=== PATIENT | female | born 1965 | race Caucasian/White ===

== ENCOUNTER 2024-08-02 12:58 | Outpatient (AMB) | payer BC, SELFPAY ==
--- NOTE | 2024-08-02 13:06 | A.SPINEOV_ITS ---
Vital Signs 08/02/24 13:27 Height 5 ft 7 in Weight 225 lb BMI 35.2 Intake Visit Reasons: LBP Intake Note: Mrs. Alfaro is here today c/o low back pain. 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 She identifies an inciting incident for her pain in mid June when she was loading a wheelchair for her [id number] into the trunk of a car. She felt a sharp pain in her low back followed by difficulty with ambulation thereafter. Since her initial injury she was attempted to utilize Tylenol, Aleve, lidocaine patches, tizanidin e, prednisone, Valium all with only modest relief of her symptoms. She has been evaluated by her primary care and by the emergency department in an effort to get to the bottom of how she is currently feeling. They were able to obtain an MRI for her. She reports that her pain is worse with walking and ambulation and better with sitting. She denies any numbness/tingling other pain. No issues wi th bowel or bladder incontinence. When describing her pain she states that it starts in her low back shoots over her right leg down the right posterior and lateral aspect of her thigh, over her lateral calf and into the bottom of her right foot. PMH: Thyroid cancer, nasal polyps, deviated septum. Social hx: The patient does not smoke, reports no substance use. Medications: Synthroid, Flonase, trazodone. Allergies: NKDA. Physical exam: The patient has 5/5 strength in her upper and lower extremities. No significant sensational deficits on exam. Reflexes are 2+ intact diffusely. She ambulates with a antalgic gait favoring the left side. (+) right-sided straight leg raise. (-) left-sided straight leg raise. (-) clonus, (-) Sotelo's. Imaging review: MRI of the lumbar spine completed at [facility] shows roughly 2-3 cm hemangioma in vertebral body of L2. In addition to this there is a posterior disc bulge at L4-5 causing mild-moderate foraminal stenosis on the left. There also appears to be a disc herniation at L5-S1 causing impingement of the far lateral recess of the left-sided exiting nerve root. Impression: Loretta is a pleasant 59-year-old female who comes in today with a chief complaint of low back pains and shooting pain down her right lower extremity. Her MRI imaging shows some evidence for impingement on her left side, however the paracentral disc herniations seen at L4-5 and L5-S1 could be causing referred pain to her right side. Nonetheless, she is less than a month out from her initial injury, and has not attempted conservative treatments for her injury as of yet. I will order her a stat order for physical therapy to get her in quickly with someone. I strongly encouraged her to follow up with her physiatry appointment at [facility] to consider cortisone injections if physical therapy alone is not helpful for her. If she completes a course of physical therapy, and is unable to treat her pain with the providers at [facility], she may return to us for subsequent evaluation. We discussed the red flag signs for cauda equina syndrome and she understands that if any of these occur she should call the office and come in and see us right away or be evaluated in the emergency department. Thank you for allowing us to care for your patient. The total time spent with this visit with this patient was 45 minutes reviewing history, physical exam, MRI imaging review, and implementation of treatment plan or further diagnostic testing Braeden Harris MD,PhD [facility] Orders: Orders PT Evaluation and Treatment Today M54.16 - Radiculopathy, lumbar region Medications: New gabapentin 300 mg PO TID 30 caps 1RF Coding Level of Care Code New Pt Level 4 (78991) Diagnoses Lumbar radiculopathy M54.16
[2024-08-02 13:27] VITALS: BMI 35.2
--- OUTSIDE RECORDS SUMMARY | 2024-08-02 15:14 | XMS_ITS | Continuity of Care Document ---
Author Organization [facility] ter Address [address] [place] [id number]- Care Team Providers Care Facility Technician Name Role Phone Ingrid Balbuena MD Primary Care Physician Encounter 07/25/24 - 07/26/[address] [address] Attending Physician: Not on Staff, Attending MD Referring Physician: Not on Staff, Referring MD Encounter Type: [facility]RI Allergies, Adverse Reactions, Alerts Substance Criticality Severity Reaction Reaction Severity Status Grass Active Medications Albuterol 2 puffs, Inhalation, PRN Wheezing/Shortness of Breath, 0 Refills, Maintenance, 11/04/12 10:35:51 AM EDT Start Date: 11/04/12 Status: Ordered Repeat number: 1 levothyroxine 0.1 mg oral tablet 1 tablet = 100 mcg, By Mouth, Daily, 0 Refills, Maintenance, 12/03/12 3:33:55 PM EDT Start Date: 12/03/12 Status: Ordered Repeat number: 1 lidocaine 4% topical film 1 patch, Topically, Daily, do not leave patch on for more than 12 hours at a time, # 10 each, 0 Refills, Acute 07/28/24 9:00:00 AM EST, 07/20/24 3:57:00 PM EST, Film, [id number], Partial fill upon patient request if the prescription is for a schedule II opioid drug., 1 patch Topically Daily,Instr:do not leave patch on for more than 12 hours at a time, 170, cm, 07/20/24 9:33:00 EST, Height, 102.5, kg, 07/20/24 9:33:00 EST, Dry Weight Start Date: 07/20/24 Stop Date: 07/28/24 Status: Ordered Quantity: 10.0 Unit: each Repeat number: 1 NuLYTELY with Flavor Packs oral powder for reconstitution See Instructions, as directed per md, # 4,000 mL, 0 Refills, Maintenance, 12/15/18 8:47:01 AM EDT, [facility], as directed per Start Date: 12/15/18 Status: Ordered Quantity: 4000.0 Unit: mL Repeat number: 1 Problem List Condition Confirmation Course Effective Dates Status Health St atus Informant Asthma Confirmed Active Depression Confirmed Active Hx of papillary thyroid carcinoma Confirmed Active Obese class II Confirmed Active Social History Social History Type Response Smoking Status Never smoker entered on: 11/06/15 Sex Sex Representation Female (finding) Patient Care team information Care Team Personnel Name: Sarah Casillas RN Position: [facility] SN RN Member Role: Primary Care Nurse Name: Ingrid Balbuena MD Position: [facility] Physician - Primary Care Member Role: PCP Address: [address] [place] [address] Telecom: Name: Khoa May CRNA Position: [facility] RN Member Role: Primary Care Nurse Care Team Related Persons Name: KELLEE SANDS Name: CECILIA MANE Name: CECILIA MANE Name: NESTOR BAUTISTA Insurance Providers Guarantor name: LILI SHAVON Health Plan Information #: 1 Payer: [employer] Member Number: NA Policy Number: NA Group Number: NA
--- OUTSIDE RECORDS SUMMARY | 2024-08-02 15:14 | XMS_ITS | Data Portability ---
Author Organization [place] - [facility], Allergy Address [address] [place] [address] Care Team Providers Care Net Development Manager Name Role Phone ARMANI CHEEMA Primary Care Provider [phone] ARMANI CHEEMA Referring Provider [phone] ARMANI CHEEMA Primary Care Provider Assessment Encounter Date Assessment Date Assessment LastModified by Organization Details LastModified Time 04/13/2024 04/13/2024 59-year-old female who is several months out from endoscopic sinus surgery with symptomatic improvement and improvement in smell presents today for reassessment. She is on IT for allergies. Exam shows some polypoid edema but no kyrie polyps or any infection. The sinus cavities are patent. Recommend follow-up 6 months or sooner if needed. [email or web address] Not available 04/20/2024 16:37:57 Plan of Treatment Reminders Order Date Submit Date Provider Last Modified By Organization Details Last Modified Time Details Appointments Establish ed 15 2024 09:45A M RABIA MARTINEZ MD Not available Not available Not available Lab None recorded. Referral None recorded. Procedures None recorded. Surgeries None recorded. Imaging None recorded. Medication Orders Flonase Allergy Relief 50 mcg/actua tion nasal spray,destiney pension 2023 024 [id number], [address] [facility] [facility], [place], [address], 01/09/2024 08:57:27 Patient TargetsNo targets recorded. Patient InstructionsNo instructions recorded. Reason for Referral None Reported. Results Created Date Observation Date Name Description Value Unit Range Abnormal Flag Note LastModifiedBy Organization Detail LastModifiedTime 03/10/2010/22/2023 imagi ng/di agnos tic resul t No observ ation record ed. [email or web address] Not Available 05:35:24 03/10/20 24 05/30/2023 imagi ng/di agnos tic resul t No observ ation record ed. [email or web address] Not Available 05:35:42 03/10/2005/30/2023 imagi ng/di agnos tic resul t No observ ation record ed. [email or web address] Not Available 05:35:47 03/10/2005/30/2023 imagi ng/di agnos tic resul t No observ ation record ed. [email or web address] Not Available 05:35:50 03/10/2005/30/2023 imagi ng/di agnos tic resul t No observ ation record ed. [email or web address] Not Available 05:35:52 Result Notes None recorded. Problems Name Problem SNOMED Code Status Onset Date Resolution Date Notes Provider Name and Address Organization Details Recorded Time Chronic maxillary sinusitis 99667355 Active 2023 Chronic maxillary sinusitis; Note: Date Diagnosed: 07/27/2023 10:40 AM (J32.0) Not Available [facility] 4 03:13:47 Polyp of nasal cavity 001723955 Active 2022 Polyp of nasal cavity; Note: Date Diagnosed: 03/27/2023 9:37 AM (J33.0) Not Available [facility] 4 03:13:46 Chronic ethmoidal sinusitis 52572750 Active 2023 Chronic ethmoidal sinusitis; Note: Date Diagnosed: 07/27/2023 10:40 AM (J32.2) Not Available [facility] 4 03:13:47 Hypertrop hy of nasal turbinate s 47907736 Active 2023 Hypertroph y of nasal turbinates ; Note: Date Diagnosed: 07/27/2023 10:40 AM (J34.3) Not Available [facility] 4 03:13:48 Allergic rhinitis 75638274 Active 2022 Other allergic rhinitis; Note: Date Diagnosed: 03/27/2023 9:37 AM (J30.89) Not Available [facility] 4 03:13:48 Nasal congestio n 22182005 Active 2022 Nasal congestion ; Note: Date Diagnosed: 03/27/2023 9:37 AM (R09.81) Not Available [facility] 4 03:13:47 Chronic pansinusi tis 86663237 Active 2023 KELLEE HERNANDEZ MD [address] [place] [address],[place] [address], [place], [address] , [place] - [facility] 4 08:46:42 Deviated nasal septum 570041076 Active 2023 Deviated nasal septum; Note: Date Diagnosed: 10/20/2023 10:31 AM (J34.2) Not Available [facility] 4 03:13:47 Follow-up visit Active 2023 Encounter for follow-up examinatio n after completed treatment for conditions other than malignant neoplasm; Note: Date Diagnosed: 10/23/2023 3:20 PM (Z09) Not Available [facility] 4 03:13:48 Problem Notes None recorded. Procedures Surgical History Date Name Laterality Status Provider Name and Address Organization Details Recorded Time 4 JMSNasal/Sinus Endoscopy completed RABIA MARTINEZ MD [address] [place] [address],[place] [address], [place], [phone], [facility] - [facility] 04/13/2024 15:27:10 4 NasalEndoscopy _DP completed KELLEE HERNANDEZ MD [address] [place] [address],[address], [address], [facility] - [facility] 01/09/2024 08:59:33 Imaging Results Imaging Date Name Status LastModified by [facility] Details LastModified Time 10/22/2023 imaging/diag nostic result completed Information not available 03/10/2024 05:35:24 05/30/2023 imaging/diag nostic result completed Information not available 03/10/2024 05:35:42 05/30/2023 imaging/diag nostic result completed Information not available 03/10/2024 05:35:47 05/30/2023 imaging/diag nostic result completed Information not available 03/10/2024 05:35:50 05/30/2023 imaging/diag nostic result completed Information not available 03/10/2024 05:35:52 Procedure Notes None recorded. Medical Equipment None Reported. Allergies No known drug allergies Medications Name Sig Start Date Stop Date Status Note LastModified by Organization Details LastModified Time azelastin e 0.05 % eye drops active Medicati on ID: [id number] B rand Name: azelasti ne Send Method: E-Prescr ibed Sub s Allowed: subs OK Medic ationGen ericName : azelasti ne Not Available Not Available Not Available ofloxacin 0.3 % eye drops INSTILL 1 DROP INTO AFFECTED EYE(S) 4 TIMES A DAY 04/13 completed Not Available Not Available Not Available fluconazo le 150 mg tablet TAKE 1 TAB BY MOUTH ONCE. MAY REPEAT DOSE IN 72 HOURS IF NECESSAR Y 04/13 completed Not Available Not Available Not Available benzonata te 200 mg capsule TAKE 1 CAPSULE BY MOUTH THREE TIMES A DAY FOR 10 DAYS 04/13 completed Not Available Not Available Not Available valacyclo vir 1 gram tablet TAKE 1 TABLET BY MOUTH THREE TIMES A DAY FOR 7 DAYS 04/13 completed Not Available Not Available Not Available Synthroid 150 mcg tablet active Not Available Not Available Not Available amoxicill in 500 mg tablet Take 1 tablet by mouth three times a day 04/13 completed Medicati on ID: [id number] D uration Value: 7 Brand Name: amoxicil ruben Send Method: E-Prescr ibed Sub s Allowed: subs OK Medic ationGen ericName : amoxicil ruben Not Available Not Available Not Available erythromy mikael 5 mg/gram (0.5 %) eye ointment APPLY 1 CM RIBBON INTO THE LOWER CONJUCTI JUAN SAC INTO AFFECTED EYE 3 TIMES A DAY FOR 7 DAYS 04/13 completed Not Available Not Available Not Available trazodone 150 mg tablet active Not Available Not Available Not Available gabapenti n 300 mg capsule 2 CAPSULES IN THE MORNING, 2 CAPSULES IN THE AFTERNOO N, AND 3 CAPSULES AT BEDTIME 04/13 completed Not Available Not Available Not Available methylpre dnisolone 4 mg tablets in a dose pack TAKE 6 TABLETS ON DAY 1 DIRECTED ON PACKAGE AND DECREASE BY 1 TAB EACH DAY FOR A TOTAL OF 6 DAYS 04/13 completed Not Available Not Available Not Available albuterol sulfate HFA 90 mcg/actua tion aerosol inhaler active Medicati on ID: [id number] B rand Name: albutero l sulfate Send Method: E-Prescr ibed Sub s Allowed: subs OK Medic ationGen ericName : albutero l sulfate Not Available Not Available Not Available fluticaso ne propionat e 50 mcg/actua tion nasal spray,destiney pension SPRAY 1 SPRAY BY INTRANAS AL ROUTE EVERY DAY active Not Available Not Available No t Available amoxicill in 875 mg-potass ium clavulana te 125 mg tablet TAKE 1 TABLET BY MOUTH EVERY 12 HOURS 04/13 completed Not Available Not Available Not Available oxycodone 5 mg tablet Take 1 tablet by mouth every four hours as needed for pain 04/13 completed Medicati on ID: [id number] D uration Value: 3 Brand Name: oxycodon e Send Method: E-Prescr ibed Sub s Allowed: subs OK Medic ationGen ericName : oxycodon e Not Available Not Available Not Available Vitals Date Recorded Body height Body mass index (BMI) Body weight Provider Name and Address Organization Details Last Updated DateTime 01/09/2024 170.18 cm 34.5 kg/m2 95287.32 g Bong Rodriguez [place] - [facility] 01/09/2024 08:49:22 Date Recorded Body height Body mass index (BMI) Body weight Provider Name and Address Organization Details Last Updated DateTime 04/13/2024 170.18 cm 34.5 kg/m2 13171.32 g Galilea Velasco [place] - [facility] 04/13/2024 15:12:48 Social History None recorded. Functional Status None recorded. Mental Status None recorded. Family History Nothing Reported. Medical History No medical history recorded. Gynecological HistoryNo gynecological history recorded. Obstetrics History GPAL:G 0 P 0 0 0 0 Past Encounters Encounter ID Performer Location Encounter Start Date Encounter Closed Date Diagnosis/Indication Diagnosis SNOMED-CT Code Diagnosis ICD10 Code Diagnosis Note [id number] KELLEE HERNANDEZ MD [facility] on [address] [place] [address], [place] [address] 01/09/2024 08:28:31 01/09/2024 09:26:04 Chronic pansinusitis 75681855 J32.4 Doing well. Start flonase to prevent progressio n. Follow up with [facility] ([facility]). Will arrange f/u with Dr. Mckineny [id number] RABIA MARTINEZ MD [facility] on [address] [place] [address], [place] [address] 04/13/2024 15:06:11 04/13/2024 15:28:16 Allergic rhinitis 22691447 J30.89 Chronic pansinusitis 888 [address] J32.4 Health Concerns Section Related Observation LastModified by Organization Detai ls LastModified Time None Recorded Concern Status LastModified by Organization Details LastModified Time None Recorded Advance Directives Directive None Recorded Payers Encounter Date Sequence Insurance Name Policy Number Policy Weir Covered Member ID Weir Member ID Guarantor Name 01/09/[address] [facility] [id number] Loretta [id number] Loretta Alfaro 04/13/[address] [facility] [id number] Loretta Alfaro [id number] Loretta Alfaro Notes Date Note Type Note Provider Name and Address Organization Details Recorded Time 01/09/2024 text/html History of FESS with septoplasty with Dr. Kinsey 10/17/23. Path benign. Smell and congestion improved. No sinusitis since the last visit. Seeing an telemetry rn. KELLEE HERNANDEZ MD [address] [place] [address], [phone], [facility] - [facility] 01/09/2024 09:00:20 04/13/2024 text/html 59 yo F presents for follow up. Saw telemetry rn, insurance denied dupixent. On IT now, can smell No sinus infections. On flonase. RABIA MARTINEZ MD [address] [place] [address], [place], [address], [facility] - [facility] 04/20/2024 16:39:04 OBGyn Episode No OBEpisode recorded.
== END 2024-08-02 14:26 | disposition home or self-care (01) ==
PROVIDERS: PCP Family Medicine; Visit Provider Physician Assistant
DX: M54.16 Radiculopathy, lumbar region (principal)
CPT/HCPCS: 99204

== ENCOUNTER → 2024-08-02 12:58 | Outpatient (BNVA) | payer BC, SELFPAY | PROVIDERS: PCP Family Medicine; Visit Provider Physician Assistant ==

== ENCOUNTER 2024-12-09 10:00 | Outpatient (AMB) | payer BC, SELFPAY ==
--- NOTE | 2024-12-09 10:04 | HO.SPINEOV ---
Intake Visit Reasons: cont/low back an rt leg pain Intake Note: Ms. Alfaro is here today c/o of low back and right leg pain continuing even after Physical Therapy. Doll Wig Maker Required: No Allergies No Known Allergies Allergy (Verified 12/09/24 10:07) Assessment & Plan Assessment & Plan (1) Lumbar radiculopathy: Code(s): M54.16 - Radiculopathy, lumbar region Category: Medical Plan HPI: Loretta is a pleasant 59 year old female who is known to our office and previously evaluated for low back pain shooting into her right lower extremity. To recap she was sent for a course of physical therapy, which he states was actually fairly helpful for her. They were able to use a TENS unit on her, do some gentle range of motion, and do some fairly extensive stretching. Unfortunately after about a month or so if physical therapy, she stopped obtaining relief from this. She did follow up with our colleagues at [facility], who completed a right-sided L5-S1 transforaminal epidural steroid injection, a L5-S1 interlaminar injection, and a piriformis muscle injection. Unfortunately she has not had any significant symptom relief from attempted injection therapies. She reports that today her pain continued to shoot down the posterior aspect of her left lower extremity. She describes the pain as severe. She states she cannot sleep at night and wakes up crying in pain. She is also on Oxycodone to help mitigate the pain, prescribed by her PCP. Imaging: MRI imaging available at [facility] from 07/25/24 shows posterior disc bulge L5-S1, which is paracentric in nature but does cause moderate right sided and severe left sided foraminal stenosis. This disc herniation also causes some effacement of the ventral surface of the thecal sac. Exam: The patient is in obvious agony on exam. She is tearful and expressing a need to find a solution for her current problem. She has full strength in her upper and lower extremities despite pain to full strength testing. She walks with a slightly antalgic gait favoring the right side. (+) bilateral straight leg raise, much worse and more pronounced on the right. No significant sensational deficits on exam. Plan: I discussed the possibility of obtaining a new MRI for the patient as her symptoms seem to have worsened quite a bit over the last 4 months, but she would like to forgo a new MRI and be scheduled for surgery to fix the problem if we are able to do so. I will review her imaging with Dr. Harris and see if he believes she is a good surgical candidate for L5-S1 microdiscectomy. The main rate limiting factor here is the orientation of the disc herniation on imaging (causing much worse compression on the left vs. right). Braeden Harris MD,PhD [facility] Coding Level of Care Code Est Pt Level 3 (34391) Diagnoses Lumbar radiculopathy M54.16
--- OUTSIDE RECORDS SUMMARY | 2024-12-09 10:22 | XMS_ITS | Data Portability ---
Author Organization [place] - [facility], Allergy Address [address] [address] Care Team Providers Care Clock Repair Technician Name Role Phone ARMANI CHEEMA Primary Care Provider [phone] Assessment Encounter Date Assessment Date Assessment LastModified [...] if needed. [email or web address] Not available 04/20/2024 16:37:57 10/12/2024 10/12/2024 59-year-old female presents today for routine allergy and sinus follow-up. No concerns for infections since her last visit. Sense of smell remains improved. Exam shows patent surgical cavities, mild polypoid edema, no mucopurulence. I did visualize her larynx given hoarseness, but there was no lesion noted. I recommended hydration, vocal hygiene. She has been doing well. She may follow-up as needed. [email or web address] Not available 10/13/2024 09:32:51 Plan of Treatment Reminders Order Date Submit Date Provider Last Modified By Organization Details Last Modified Time Details Appointments None recorded. Lab None recorded. Referral None recorded. Procedures None recorded. Surgeries None recorded. Imaging None recorded. Medication Orders Flonase Allergy Relief 50 mcg/actua tion nasal spray,destiney pension 024 024 [facility] #[id number], [address] [facility], [place], [address], 08:57:27 Patient TargetsNo targets recorded. Patient InstructionsNo instructions recorded. Reason for Referral None Reported. Results Created Date Observation Date Name Description Value Unit Range Abnormal Flag Note LastModifiedBy Organization Detail LastModifiedTime 03/10/2010/22/2023 imagi ng/di agnos tic resul t No observ ation record ed. [email or web address] Not Available 05:35:24 03/10/2005/30/2023 imagi ng/di agnos tic resul t [...] Organization Details Recorded Time Chronic maxillary sinusitis 89836535 Active 2023 Chronic maxillary sinusitis ; Note: Date Diagnosed : 07/27/2023 10:40 AM (J32.0) Not Available [facility] 4 03:13:47 Polyp of nasal cavity 045100077 Active 2022 Polyp of nasal cavity; Note: Date Diagnosed : 03/27/2023 9:37 AM (J33.0) Not Available [facility] 4 03:13:46 Chronic ethmoidal sinusitis 44309468 Active 2023 Chronic ethmoidal sinusitis ; Note: Date Diagnosed : 07/27/2023 10:40 AM (J32.2) Not Available [facility] 4 03:13:47 Hypertrop hy of nasal turbinate s 33483491 Active 2023 Hypertrop hy of nasal turbinate s; Note: Date Diagnosed : 07/27/2023 10:40 AM (J34.3) Not Available [facility] 4 03:13:48 Allergic rhinitis 98364429 Active 2022 Other allergic rhinitis; Note: Date Diagnosed : 03/27/2023 9:37 AM (J30.89) Not Available [facility] 4 03:13:48 Nasal congestio n 58698039 Active 2022 Nasal congestio n; Note: Date Diagnosed : 03/27/2023 9:37 AM (R09.81) Not Available [facility] 4 03:13:47 Chronic pansinusi tis 08491048 Active 2023 KELLEE HERNANDEZ MD [address] [facility] [address],[place] [address], [place], [address] , [place] - [facility] 4 08:46:42 Deviated nasal septum 716761635 Active 2023 Deviated nasal septum; Note: Date Diagnosed : 10/20/2023 10:31 AM (J34.2) Not Available [facility] 4 03:13:47 Follow-up visit Active 2023 Encounter for follow-up examinati on after completed treatment for condition s other than malignant neoplasm; Note: Date Diagnosed : 10/23/2023 3:20 PM (Z09) Not Available [facility] 4 03:13:48 Chronic hoarsenes s 37796013613 05 Active 2024 RABIA MARTINEZ MD [address] [facility] [address], [place], [address] , [place] [facility] 5 09:31:35 Problem Notes None recorded. Procedures Surgical History Date Name Laterality Status Provider Name and Address Organization Details Recorded Time 10/13/19 25 Fiberoptic Laryngoscopy (Comprehensive) completed RABIA MARTINEZ MD [address] [facility] [address], [place], [address], [place] - [facility] 10/13/2024 09:31:29 04/13/20 JMSNasal/Sinus Endoscopy completed RABIA MARTINEZ MD [address], [address], [facility] 04/13/2024 15:27:10 01/09/20 NasalEndoscopy_D P completed KELLEE HERNANDEZ MD [address], [address], [facility] 01/09/2024 08:59:33 Imaging Results Imaging Date Name Status [facility]Modified by [facility] Details LastModified Time 10/22/2023 imaging/diag nostic result [...] % eye drops active Medicati on ID: [id number] B rand Name: christofer solano Send Method: E-Prescr ibed Sub s Allowed: subs OK [facility] eitanmadihastlise solano Not Available Not Available Not Available prednison e 10 mg tablet TAKE 5 TABS ON DAY 1 AND DAY 2 4 TABS ON DAY 3, 3 TABS ON DAY 4 2 TABS ON DAY 5, 1 TAB ON DAY 6 10/12 completed Not Available Not Available Not Available tizanidin e 2 mg tablet TAKE 1 TABLET EVERY 6-8 HOURS FOR 5 DAYS, FOR LOW BACK PAIN. MAY TAKE 2 TABLETS FOR SEVERE PAIN. 10/12 completed Not Available Not Available Not Available alprazola m 1 mg tablet TAKE 1 TABLET BY MOUTH 1 HOUR BEFORE INJECTIO N active Not Available Not Available No t Available ofloxacin 0.3 % eye drops INSTILL [...] Available Not Available Synthroid 150 mcg tablet TAKE 1 TABLET 6 DAYS PER WEEK active Not Available Not Available No t Available prednison e 20 mg tablet TAKE 2 TABLETS BY MOUTH EVERY DAY FOR 5 DAYS 10/12 completed Not Available Not Available Not Available tramadol 50 mg tablet TAKE 1 TABLET BY MOUTH EVERY 6 HOURS NEEDED active Not Available Not Available No t Available amoxicill in 500 mg tablet Take 1 tablet by mouth three times a day 04/13 completed Medicati on ID: [id number] D uration Value: 7 Brand Name: amoxicil [...] Available Not Available trazodone 150 mg tablet TAKE 1 TABLET DAILY AT BEDTIME (NOTE INCREASE D DOSE, REPLACES 100 MG) active Not Available Not Available No t Available gabapenti n 300 mg capsule 2 CAPSULES IN THE MORNING, 2 CAPSULES IN THE AFTERNOO N, AND 3 CAPSULES AT BEDTIME active Not Available Not Available No t Available methylpre dnisolone 4 mg tablets in a dose pack TAKE 6 TABLETS ON DAY 1 DIRECTED ON PACKAGE AND DECREASE BY 1 TAB EACH DAY FOR A TOTAL OF 6 DAYS 09/24 /2024 completed Not Available Not Available Not Available albuterol sulfate HFA 90 mcg/actua tion aerosol inhaler 10/12 completed Medicati on ID: [id number] B rand Name: albutero l sulfate Send Method: E-Prescr ibed Sub s Allowed: subs OK Medic ationGen ericName : albutero l sulfate Not Available Not Available Not Available morphine 15 mg immediate release tablet TAKE 1 TABLET BY MOUTH THREE TIMES A DAY NEEDED FOR 5 DAYS 10/12 completed Not Available Not Available Not Available fluticaso ne propionat e 50 mcg/actua tion nasal spray,destiney pension SPRAY 1 SPRAY BY INTRANAS AL ROUTE EVERY DAY active Not Available Not Available No t Available diazepam 5 mg tablet TAKE 1 TABLET BY MOUTH THREE TIMES A DAY FOR 3 DAYS NEEDED FOR SPASM 10/12 completed Not Available Not Available Not Available amoxicill in 875 mg-potass ium clavulana te 125 mg tablet TAKE 1 TABLET BY MOUTH EVERY 12 HOURS 04/13 completed Not Available Not Available Not Available oxycodone 5 mg tablet Take 1 tablet by mouth every four hours as needed for pain 04/13 completed Medicati on ID: [id number] D uration Value: 3 Brand Name: oxycodon e Send Method: E-Prescr ibed Sub s Allowed: subs OK Medic ationGen ericName : oxycodon e Not Available Not Available Not Available Airsupra 90 mcg-80 mcg/actua tion HFA aerosol inhaler INHALE 2 PUFFS BY MOUTH EVERY 4 HOURS NEEDED FOR SOB/COUG H active Not Available Not Available No t Available Vitals Date Recorded Body height Body mass index (BMI) Body weight Provider Name and Address Organization Details Last Updated DateTime 10/12/2024 170.18 cm 34.2 kg/m2 91923.93 g Galilea Velasco [place] - [facility] 10/12/2024 09:47:26 Date Recorded Body height Body mass index (BMI) Body weight Provider Name and Address Organization Details Last Updated DateTime 01/09/2024 170.18 cm 34.5 kg/m2 59669.32 g Bong Rodriguez [place] - [facility] 01/09/2024 08:49:22 Date Recorded Body height Body mass index (BMI) Body weight Provider Name and Address Organization Details Last Updated DateTime 04/13/2024 170.18 cm 34.5 kg/m2 22835.32 g Galilea Velasco [place] - [facility] 04/13/2024 15:12:48 Social History None recorded. [...] Note [id number] KELLEE HERNANDEZ MD [facility] on [address] [place] [address] 01/09/2024 08:28:31 01/09/2024 09:26:04 Chronic pansinusitis 37898684 J32.4 Doing well. Start flonase to prevent progressio n. Follow up with AYAH (diamond conroy). Will arrange f/u with Dr. Mckinney [id number] RABIA MARTINEZ MD [facility] on [address] [place] [phone] 04/13/2024 15:06:11 04/13/2024 15:28:16 Allergic rhinitis 44399139 J30.89 Chronic pansinusitis 888 87687 J32.4 [id number] RABIA MARTINEZ MD [facility] on [address] [place] [address] 10/12/2024 09:31:19 10/12/2024 10:07:27 Allergic rhinitis 96007913 J30.89 Chronic hoarseness 38019 17299 105 R49.0 Health Concerns Section Related Observation LastModified by Organization Detai ls LastModified Time None Recorded Concern Status LastModified by Organization Details LastModified Time None Recorded Advance Directives Directive None Recorded Payers Insurance Date Sequence Insurance Name Policy Number Policy Weir Covered Member ID Weir Member ID Guarantor Name 10/05/2024 1 [facility] [facility] [id number] Loretta Alfaro [id number] Loretta Rosenbergusz 10/05/2024 2 [place] [facility] [id number] Loretta Mane Dominic [id number] Loretta Mane Dominic 10/12/2024 1 [place] [id number] Loretta Mane Joaniez [id number] Loretta Mane Dominic Notes Date Note Type Note Provider Name and Address Organization Details Recorded Time 01/09/2024 text/html History of FESS with septoplasty with Dr. Kinsey 10/17/23. Path benign. Smell and congestion improved. No sinusitis since the last visit. Seeing an it infrastructure consultant. KELLEE HERNANDEZ MD 100 [facility],[address], [address], [place] - [facility] 01/09/2024 09:00:20 04/13/2024 text/html 59 yo F presents for follow up. Saw it infrastructure consultant, insurance denied dupixent. On IT now, can smell No sinus infections. On flonase. RABIA MARTINEZ MD 100 [facility],[address], [address], [place] [facility] 04/20/2024 16:39:04 10/12/2024 text/html No concerns for airflow or infectionsCan smell but a little muted, definitely better using allergy pillsusing flonaseon ITNotices a little hoarseness PV: 59 yo F presents for follow up. Saw it infrastructure consultant, insurance denied dupixent. On IT now, can smell No sinus infections. On flonase. RABIA MARTINEZ MD 100 [facility],[address], [address], [place] [facility] 10/13/2024 09:33:10 OBGyn Episode No OBEpisode recorded.
== END 2024-12-09 11:02 | disposition home or self-care (01) ==
LOC: HO.HNS 10:01
PROVIDERS: PCP Family Medicine; Visit Provider Physician Assistant
DX: M54.16 Radiculopathy, lumbar region (principal)
CPT/HCPCS: 99213

== ENCOUNTER 2024-12-27 14:37 | Outpatient (AMB) | payer BC, SELFPAY ==
--- NOTE | 2024-12-27 14:15 | A.SPINEOV_ITS ---
Intake Visit Reasons: discuss surgery Intake Note: Ms. Alfaro is here todat to discuss surgery. Milking System Installer Required: No Allergies No Known Allergies Allergy (Verified 12/09/24 10:07) Assessment & Plan Assessment & Plan (1) Lumbar radiculopathy: Code(s): M54.16 - Radiculopathy, lumbar region Category: Medical Plan Loretta comes in today for follow up to discuss surgery. She was previously evaluated in clinic for a disc herniation at L5-S1. I reviewed her MRI imaging with the attending neurosurgeon Dr. Harris (Patient brought MRI disc but it is also available at [place]) which shows a large disc herniation at L5-S1, specifically images 57/128 on Saggital T2. The patient was most recently sent for a course of PT and was subsequently sent for several injections with our colleagues at [facility]. Unfotunately her symptoms persist. She is now going on about 5 months of conservative treatment. Given this, Dr. Harris is willing to offer the patient a right sided L5-S1 microdiscectomy. We extensively discussed this procedure during her office visit today utilizing the spine models in office. I answered all questions she had related to the procedure. The patient was given risk and benefits of surgery including but not limited to infection, hematoma, nerve injury, durotomy, weakness, bowel/bladder injury, persistent pain, and recurrent disc herniation. We also discussed the option to continue with conservative treatment and patient wishes to proceed with surgery. They are aware they should stop NSAIDs 7 days prior to surgery. All questions were answered to the best of our ability. If there is anything about this patients medical history that we have overlooked or concerns you have about us proceeding with surgery we would appreciate any input you can offer Braeden Harris MD,PhD [facility] Coding Level of Care Code Est Pt Level 3 (62304) Diagnoses Lumbar radiculopathy M54.16
--- OUTSIDE RECORDS SUMMARY | 2024-12-27 16:27 | XMS_ITS | Data Portability ---
Author Organization [place] - [facility], Allergy Address [address] [address] Care Team Providers Care Electronic Scale Tester Name Role Phone ARMANI CHEEMA Primary Care Provider [phone] Assessment Encounter Date Assessment Date Assessment LastModified [...] mcg/actua tion nasal spray,destiney pension 024 024 [facility]/Pharmacy #[id number], [address] [facility], [place], [address], 08:57:27 Patient TargetsNo targets recorded. Patient InstructionsNo [...] Organization Details Recorded Time Chronic maxillary sinusitis 94502007 Active 2023 Chronic maxillary sinusitis ; Note: Date Diagnosed : 07/27/2023 10:40 AM (J32.0) Not Available [facility] 4 03:13:47 Polyp of nasal cavity 074335150 Active 2022 Polyp of nasal cavity; Note: Date Diagnosed : 03/27/2023 9:37 AM (J33.0) Not Available [facility] 4 03:13:46 Chronic ethmoidal sinusitis 53624765 Active 2023 Chronic ethmoidal sinusitis ; Note: Date Diagnosed : 07/27/2023 10:40 AM (J32.2) Not Available [facility] 4 03:13:47 Hypertrop hy of nasal turbinate s 33148525 Active 2023 Hypertrop hy of nasal turbinate s; Note: Date Diagnosed : 07/27/2023 10:40 AM (J34.3) Not Available [facility] 4 03:13:48 Allergic rhinitis 59524595 Active 2022 Other allergic rhinitis; Note: Date Diagnosed : 03/27/2023 9:37 AM (J30.89) Not Available [facility] 4 03:13:48 Nasal congestio n 51411418 Active 2022 Nasal congestio n; Note: Date Diagnosed : 03/27/2023 9:37 AM (R09.81) Not Available [facility] 4 03:13:47 Chronic pansinusi tis 09915271 Active 2023 KELLEE HERNANDEZ MD 100 [facility] [place] [address], [place], [address] , [place] - [facility] 4 08:46:42 Deviated nasal septum 528139576 Active 2023 Deviated nasal septum; Note: Date Diagnosed : 10/20/2023 10:31 AM (J34.2) Not Available [facility] 4 03:13:47 Follow-up visit Active 2023 Encounter for follow-up examinati on after completed treatment for condition s other than malignant neoplasm; Note: Date Diagnosed : 10/23/2023 3:20 PM (Z09) Not Available [facility] 4 03:13:48 Chronic hoarsenes s 61856455010 05 Active 2024 RABIA MARTINEZ MD 100 [facility] [place], [place], [address] , [place] [facility] 5 09:31:35 Problem Notes None recorded. Procedures Surgical History Date Name Laterality Status Provider Name and Address Organization Details Recorded Time 10/13/19 25 Fiberoptic Laryngoscopy (Comprehensive) completed RABIA MARTINEZ MD 100 [facility] [place], [place], [address], [place] [facility] 10/13/2024 09:31:29 04/13/20 JMSNasal/Sinus Endoscopy completed RABIA MARTINEZ MD [address], [address], [facility] 04/13/2024 15:27:10 01/09/20 NasalEndoscopy_D P completed KELLEE HERNANDEZ MD 100 [facility],[place] [address], [place], [address], [facility] 01/09/2024 08:59:33 Imaging Results None recorded. Procedure Notes None recorded. Medical Equipment None Reported. Allergies No known drug allergies Medications Name Sig Start Date Stop Date Status Note LastModified by Organization Details LastModified Time azelastin e 0.05 % eye drops active Medicati on ID: [id number] B rand Name: christofer solano Send Method: E-Prescr ibed Sub s Allowed: subs OK Medic ationGen ericName : christofer solano Not Available Not Available Not Available [...] a day 04/13 completed Medicati on ID: [id number] D uration Value: 7 Brand Name: amoxicil [...] aerosol inhaler 10/12 completed Medicati on ID: [id number] B rand Name: albutero l sulfate Send [...] for pain 04/13 completed Medicati on ID: [id number] D uration Value: 3 Brand Name: oxycodon [...] Updated DateTime 10/12/2024 170.18 cm 34.2 kg/m2 12452.93 g Galilea Velasco [place] - [facility] 10/12/2024 09:47:26 Date Recorded Body height Body mass index (BMI) Body weight Provider Name and Address Organization Details Last Updated DateTime 01/09/2024 170.18 cm 34.5 kg/m2 23511.32 g Bong Rodriguez [place] - [facility] 01/09/2024 08:49:22 Date Recorded Body height Body mass index (BMI) Body weight Provider Name and Address Organization Details Last Updated DateTime 04/13/2024 170.18 cm 34.5 kg/m2 90637.32 g Galilea Velasco [facility] 04/13/2024 15:12:48 Social History None recorded. Functional [...] Note 5008 KELLEE HERNANDEZ MD ENT[facility] of [address] [address] 01/09/2024 08:28:31 01/09/2024 09:26:04 Chronic pansinusitis 09239430 J32.4 Doing well. Start flonase to prevent progressio n. Follow up with AYAH (diamond conroy). Will arrange f/u with Dr. Kinsey. [id number] RABIA MARTINEZ MD [facility] of [facility] on [address] [place] [address] 04/13/2024 15:06:11 04/13/2024 15:28:16 Allergic rhinitis 71502037 J30.89 Chronic pansinusitis 888 39395 J32.4 15433 RABIA MARTINEZ MD [facility] of [facility] on [address] [place] [address] 10/12/2024 09:31:19 10/12/2024 10:07:27 Allergic rhinitis 81262082 J30.89 Chronic hoarseness 59322 04973 105 R49.0 Health Concerns Section Related Observation LastModified by Organization Detai ls LastModified Time None Recorded Concern Status LastModified by Organization Details LastModified Time None Recorded Advance Directives Directive None Recorded Payers Insurance Date Sequence Insurance Name Policy Number Policy Weir Covered Member ID Weir Member ID Guarantor Name 10/05/2024 1 [facility]: [facility] ([facility] [id number] Loretta Alfaro [id number] Loretta Nairz 10/05/2024 2 [facility]: [facility] ([facility] [id number] Loretta Alfaro [id number] Loretta Alfaro 10/12/2024 1 [facility] ([place] [id number] Loretta Alfaro [id number] Loretta Alfaro Notes Date Note Type Note Provider Name and Address Organization Details Recorded Time 01/09/2024 text/html History of FESS with septoplasty with Dr. Kinsey 10/17/23. Path benign. Smell and congestion improved. No sinusitis since the last visit. Seeing an enterprise applications manager. KELLEE HERNANDEZ MD [address] [place] [address], [phone], [place] - [facility] [place] 01/09/2024 09:00:20 04/13/2024 text/html 59 yo F presents for follow up. Saw enterprise applications manager, insurance denied dupixent. On IT now, can smell No sinus infections. On flonase. RABIA MARTINEZ MD 100 [facility],[place] [address], [place], [address], [place] [facility] 04/20/2024 16:39:04 10/12/2024 text/html No concerns for airflow or infectionsCan smell but a little muted, definitely better using allergy pillsusing flonaseon ITNotices a little hoarseness PV: 59 yo F presents for follow up. Saw enterprise applications manager, insurance denied dupixent. On IT now, can smell No sinus infections. On flonase. RABIA MARTINEZ MD [address] [place] [address],[place] [address], [place], [address], [place] [facility] 10/13/2024 09:33:10 OBGyn Episode No OBEpisode recorded.
== END 2024-12-27 15:03 | disposition home or self-care (01) ==
LOC: HO.HNS 14:37
PROVIDERS: PCP Family Medicine; Visit Provider Physician Assistant
DX: M54.16 Radiculopathy, lumbar region (principal)
CPT/HCPCS: 99213

== ENCOUNTER → 2024-12-27 14:37 | Outpatient (BNVA) | payer BC, SELFPAY | PROVIDERS: PCP Family Medicine; Visit Provider Physician Assistant ==

== ENCOUNTER 2025-02-24 06:45 | Day surgery (SDC) | payer BC, SELFPAY ==
--- OUTSIDE RECORDS SUMMARY | 2025-01-13 18:05 | XMS_ITS | Data Portability ---
Author Organization [place] - [facility], Allergy Address [address] [address] Care Team Providers Care Camp Assistant Name Role Phone ARMANI CHEEMA Primary Care Provider Assessment Encounter [...] mcg/actua tion nasal spray,destiney pension [phone] [facility]/Pharmacy [id number] [place] [address], [id number], 08:57:27 Patient TargetsNo targets recorded. Patient InstructionsNo [...] Organization Details Recorded Time Chronic maxillary sinusitis 65938405 Active 2023 Chronic maxillary sinusitis ; Note: Date Diagnosed : 07/27/2023 10:40 AM (J32.0) Not Available [facility] 4 03:13:47 Polyp of nasal cavity 282267591 Active 2022 Polyp of nasal cavity; Note: Date Diagnosed : 03/27/2023 9:37 AM (J33.0) Not Available [facility] 4 03:13:46 Chronic ethmoidal sinusitis 95661666 Active 2023 Chronic ethmoidal sinusitis ; Note: Date Diagnosed : 07/27/2023 10:40 AM (J32.2) Not Available [facility] 4 03:13:47 Hypertrop hy of nasal turbinate s 71752888 Active 2023 Hypertrop hy of nasal turbinate s; Note: Date Diagnosed : 07/27/2023 10:40 AM (J34.3) Not Available [facility] 4 03:13:48 Allergic rhinitis 84318349 Active 2022 Other allergic rhinitis; Note: Date Diagnosed : 03/27/2023 9:37 AM (J30.89) Not Available [facility] 4 03:13:48 Nasal congestio n 41986573 Active 2022 Nasal congestio n; Note: Date Diagnosed : 03/27/2023 9:37 AM (R09.81) Not Available [facility] 4 03:13:47 Chronic pansinusi tis 53462125 Active 2023 KELLEE HERNANDEZ MD 100 [facility],[place] [address], [place], [address] , [place] [facility] 4 08:46:42 Deviated nasal septum 698088079 Active 2023 Deviated nasal septum; Note: Date Diagnosed : 10/20/2023 10:31 AM (J34.2) Not Available [facility] 4 03:13:47 Follow-up visit Active 2023 Encounter for follow-up examinati on after completed treatment for condition s other than malignant neoplasm; Note: Date Diagnosed : 10/23/2023 3:20 PM (Z09) Not Available [facility] 4 03:13:48 Chronic hoarsenes s 24349701988 05 Active 2024 RABIA MARTINEZ MD 100 [facility] [address], [address] , [facility] - [facility] 5 09:31:35 Problem Notes None recorded. Procedures Surgical History Date Name Laterality Status Provider Name and Address Organization Details Recorded Time 10/13/19 25 Fiberoptic Laryngoscopy (Comprehensive) completed RABIA MARTINEZ MD [address] [place] [address],[place] [address], [place], [address], [place] - [facility] 10/13/2024 09:31:29 04/13/20 JMSNasal/Sinus Endoscopy completed RABIA MARTINEZ MD 100 [facility],[address], [address], [facility] 04/13/2024 15:27:10 01/09/20 NasalEndoscopy_D P completed KELLEE HERNANDEZ MD [address] [facility],[place] [address], [place], [address], [facility] 01/09/2024 08:59:33 Imaging Results None recorded. Procedure Notes None recorded. Medical Equipment None Reported. Allergies No known drug allergies Medications Name Sig Start Date Stop Date Status Note LastModified by Organization Details LastModified Time azelastin e 0.05 % eye drops active Medicati on ID: [id number] B rand Name: christofer solano Send Method: [...] a day 04/13 completed Medicati on ID: [id number] D uration Value: 7 Brand Name: amoxicil ruben Send Method: E-Prescr ibed Sub s Allowed: subs OK Medic ationGen ericName : amoxicil ruben Not Available Not Available Not Available erythromy imkael 5 mg/gram (0.5 %) eye ointment APPLY [...] aerosol inhaler 10/12 completed Medicati on ID: [id number] B rand Name: albutero l sulfate Send [...] SPRAY BY INTRANAS AL ROUTE EVERY DAY 2024 active Not Available Not Available Not Avai lable diazepam 5 mg tablet TAKE 1 TABLET [...] for pain 04/13 completed Medicati on ID: [id number] D uration Value: 3 Brand Name: oxycodon [...] Updated DateTime 10/12/2024 170.18 cm 34.2 kg/m2 81826.93 g Galilea Velasco [place] - [facility] 10/12/2024 09:47:26 Date Recorded Body height Body mass index (BMI) Body weight Provider Name and Address Organization Details Last Updated DateTime 01/09/2024 170.18 cm 34.5 kg/m2 34058.32 g Bong Rodriguez [place] - [facility] 01/09/2024 08:49:22 Date Recorded Body height Body mass index (BMI) Body weight Provider Name and Address Organization Details Last Updated DateTime 04/13/2024 170.18 cm 34.5 kg/m2 86834.32 g Galilea Velasco [facility] 04/13/2024 15:12:48 Social History None recorded. [...] Note [id number] KELLEE HERNANDEZ MD [facility] [place] [address] [place] [address] 01/09/2024 08:28:31 01/09/2024 09:26:04 Chronic pansinusitis 04350520 J32.4 Doing well. Start flonase to prevent progressio n. Follow up with [facility] (diamond conroy). Will arrange f/u with Dr. Mckinney [id number] RABIA MARTINEZ MD [facility] on [address] [place] [address], [place] [address] 04/13/2024 15:06:11 04/13/2024 15:28:16 Allergic rhinitis 58996061 J30.89 Chronic pansinusitis 888 76537 J32.4 [id number] RABIA MARTINEZ MD [facility] on [address] [place] [address], [place] [address] 10/12/2024 09:31:19 10/12/2024 10:07:27 Allergic rhinitis 57616472 J30.89 Chronic hoarseness 96752 67556 105 R49.0 Health Concerns Section Related Observation LastModified by Organization Detai ls LastModified Time None Recorded Concern Status LastModified by Organization Details LastModified Time None Recorded Advance Directives Directive None Recorded Payers Insurance Date Sequence Insurance Name Policy Number Policy Weir Covered Member ID Weir Member ID Guarantor Name 10/05/2024 1 [facility]: [facility] [id number] Loretta Alfaro [id number] Loretta Alfaro 10/05/2024 2 [facility]: [facility] [id number] Loretta Alfaro [id number] Loretta Alfaro 10/12/2024 1 [facility] ([facility] [id number] Loretta Alfaro [id number] Loretta Alfaro Notes Date Note Type Note Provider Name and Address Organization Details Recorded Time 01/09/2024 text/html History of FESS with septoplasty with Dr. Kinsey 10/17/23. Path benign. Smell and congestion improved. No sinusitis since the last visit. Seeing an food service substitute. KELLEE HERNANDEZ MD [address] [place], [place] [address], [place], [address], [place] [facility] 01/09/2024 09:00:20 04/13/2024 text/html 59 yo F presents for follow up. Saw food service substitute, insurance denied dupixent. On IT now, can smell No sinus infections. On flonase. RABIA MARTINEZ MD 100 [facility],[address], [address], [place] [facility] 04/20/2024 16:39:04 10/12/2024 text/html No concerns for airflow or infectionsCan smell but a little muted, definitely better using allergy pillsusing flonaseon ITNotices a little hoarseness PV: 59 yo F presents for follow up. Saw food service substitute, insurance denied dupixent. On IT now, can smell No sinus infections. On flonase. RABIA MARTINEZ MD 100 [facility],[address], [address], [place] [facility] 10/13/2024 09:33:10 OBGyn Episode No OBEpisode recorded.
[2025-02-16 16:08] VITALS: BMI 35.5
--- NOTE | 2025-02-22 14:58 | HO.ANESPROP2 ---
Documented by User: Doris Mcclure NP 02/22/25 14:58 HPI - Anesthesia Eval Consult details Narrative: 60yo F for Right L5-S1 MicroLumbar discectomy PMFSH Active Problems Active Problems: All Active Problems Lumbar radiculopathy (Acute) Past Medical History Medical History Adopted Back pain Hypothyroidism Asthma Allergic rhinitis Surgical History Surgical History Hx of tonsillectomy History of endometrial ablation History of tubal ligation Hx of colonoscopy Hx of thyroidectomy History of nasal polypectomy Hx of nasal septoplasty Social History Social History Household Members Other:: daughter Housing: House Are you a primary medicare specialist to a significant other at home: No Do you presently have visiting nurse or other home services: No Patient Tobacco Use Status: Never used Tobacco Second Hand Smoke Exposure: No Use of substances other than those prescribed or required for medical reasons: No Have you been hit, kicked, punched, or otherwise hurt by someone within the past year? If so, by whom?: No Are you DNR?: No Advance Directives: No Advance Directives Information Provided: Yes Advance Directives on File: No Patient : No : No Poor oral hygiene: No Meds Allergies Allergy/AdvReac Type Severity Reaction Status Date / Time No Known Allergies Allergy Verified 12/09/24 10:07 Home Medications ?Medication ?Instructions ?Recorded ?Confirmed ?Last Taken ?Type acetaminophen 500 mg tablet 1,000 mg PO QID PRN Pain 02/16/25 02/16/25 Unknown History albuterol 90 mcg-budesonide 80 2 inh inhalation Q4H PRN cough 02/16/25 02/16/25 Unknown History mcg/actuation HFA aerosol inhaler (Airsupra) albuterol sulfate 90 mcg/actuation 2 puff inhalation 6XD PRN 02/16/25 02/16/25 Unknown History aerosol inhaler Shortness Of Breath Or Wheezing azelastine 0.05 % eye drops 1 drp ophthalmic (eye) BID PRN 02/16/25 02/16/25 Unknown History Allergy Symptoms fluticasone propionate 50 1 spray intranasal DAILY 02/16/25 02/16/25 Unknown History mcg/actuation nasal spray,suspension ibuprofen 200 mg tablet (Advil) 600 mg PO Q8H PRN Pain 02/16/25 02/16/25 Unknown History levothyroxine 150 mcg tablet 150 mcg PO 6XW 02/16/25 02/16/25 Unknown History (Synthroid) oxycodone 5 mg tablet 5 mg PO TID PRN pain 02/16/25 02/16/25 Unknown History tramadol 50 mg tablet 50 mg PO Q6H PRN Pain 02/16/25 02/16/25 Unknown History Exam Height,Weight and Vital Signs: Height 5 ft 6 in Weight 99.79 kg Assessment and Plan Assessment Anesthesia Assessment: Chart Reviewed Documented by User: Courtney Rousseau MD 02/24/25 07:55 [facility] Past Medical History Medical History Adopted Back pain Hypothyroidism Asthma Allergic rhinitis Family History Family history of problems with anesthesia: No Surgical History Surgical History Hx of tonsillectomy History of endometrial ablation History of tubal ligation Hx of colonoscopy Hx of thyroidectomy History of nasal polypectomy Hx of nasal septoplasty History of Problems with Anesthesia: No Social History Social History Household Members Other:: daughter Housing: House Are you a primary medicare specialist to a significant other at home: No Do you presently have visiting nurse or other home services: No Patient Tobacco Use Status: Never used Tobacco Second Hand Smoke Exposure: No Use of substances other than those prescribed or required for medical reasons: No Have you been hit, kicked, punched, or otherwise hurt by someone within the past year? If so, by whom?: No Are you DNR?: No Advance Directives: No Advance Directives Information Provided: Yes Advance Directives on File: No Patient : No : No Poor oral hygiene: No Meds Allergies Allergy/AdvReac Type Severity Reaction Status Date / Time No Known Allergies Allergy Verified 12/09/24 10:07 Home Medications ?Medication ?Instructions ?Recorded ?Confirmed ?Last Taken ?Type acetaminophen 500 mg tablet 1,000 mg PO QID PRN Pain 02/16/25 02/16/25 Unknown History albuterol 90 mcg-budesonide 80 2 inh inhalation Q4H PRN cough 02/16/25 02/16/25 Unknown History mcg/actuation HFA aerosol inhaler (Airsupra) albuterol sulfate 90 mcg/actuation 2 puff inhalation 6XD PRN 02/16/25 02/16/25 Unknown History aerosol inhaler Shortness Of Breath Or Wheezing azelastine 0.05 % eye drops 1 drp ophthalmic (eye) BID PRN 02/16/25 02/16/25 Unknown History Allergy Symptoms fluticasone propionate 50 1 spray intranasal DAILY 02/16/25 02/16/25 Unknown History mcg/actuation nasal spray,suspension ibuprofen 200 mg tablet (Advil) 600 mg PO Q8H PRN Pain 02/16/25 02/16/25 Unknown History levothyroxine 150 mcg tablet 150 mcg PO 6XW 02/16/25 02/16/25 Unknown History (Synthroid) oxycodone 5 mg tablet 5 mg PO TID PRN pain 02/16/25 02/16/25 Unknown History tramadol 50 mg tablet 50 mg PO Q6H PRN Pain 02/16/25 02/16/25 Unknown History Exam Airway Mallampati Class: II TM Dist: >3cm Neck ROM: Full Heart: rrr Lungs: cta Assessment and Plan Assessment Anesthesia Assessment: Anesthesia Plan Discussed Final Anesthetic Review Family History of Problems with Anesthesia: No History of Problems with Anesthesia: No NPO: Yes ASA Class: II Final Preanesthetic Review: No Changes in Pt Med Stat, Meds/Allgs Chart Reviewed, Consent Obtained/Reviewed and Anes Risks/Benef Reviewed Patient Risk: Low Procedure Risk: Intermediate Anesthetic Plan Anesthetic Plan: GA Disposition: Standard PACU
[2025-02-24] VITALS (9 sets, daily range): BP systolic 121–138; BP diastolic 67–88; PULSE 74–99; RESP 16; TEMP 36.3–36.5; O2SAT 94–99
--- NOTE | ~2025-02-24 | FL_ITS ---
EXAMINATION: FL GUIDANCE ONLY HISTORY: L5-S1 Microdiscectomy Right COMPARISON: None available. TECHNIQUE: Fluoroscopy time: 0.1 minute. Cumulative Dose: 6.55 mGy. DAP: 1.28 mGym2 Images: 1. FINDINGS: A single fluoroscopic spot film of the lumbar spine in the lateral projection demonstrates a probe directed toward the L5-S1 intervertebral disc space from a posterior approach. FL/FL guidance in OR IMPRESSION: Fluoroscopy during procedure. Please see procedure report for additional information. Electronically signed by: Rick Rubin MD 02/24/2025 09:26 AM EDT
--- NOTE | 2025-02-24 07:01 | MHC.SHP ---
Pre-Procedural Eval Section A - 24 Hr Update-Section A only Date of Service: 02/24/25 Section B - Complete if H&P > 30 days Chief Complaint: Radiculopathy, lumbar region Allergies: Allergies Allergy/AdvReac Type Severity Reaction Status Date / Time No Known Allergies Allergy Verified 12/09/24 10:07 Review of Systems Sugical H&P ROS: Negative: Constitution, Cardiovascular, Respiratory, Neurological, Psychiatric, Hem-Onc, Allergic/Immunologic, Gastrointestinal, Genitourinary, Musculoskeletal, Integumentary, Endocrine and Eyes/Ears/Nose/Throat Exam Surgical H&P Exam: Not Evaluated: HEENT, Not Evaluated: Heart, Not Evaluated: Lungs, Not Evaluated: Extremities, Not Evaluated: Abdomen, Not Evaluated: Skin and Not Evaluated: Neurological Exam Comment: The patient is awake, alert, no acute distress. Proposed surgical incision site is clean, dry, with no signs of recent trauma. Plan Diagnosis/Plan: Unchanged I have reviewed the history and physical and performed a pertinent physical examination on my patient. No changes have occurred unless specified. Plan remains the same, left L5-S1 microdiskectomy. Time Spent With Patient Time: Total time managing care of this patient today ___7_ minutes.
[2025-02-24] MEDS: Lactated Ringers 1,000 ML 100 ML IVCONT (07:31)
--- NOTE | 2025-02-24 08:34 | PM.DS ---
DS: Providers Provider Date of Service: 02/24/25 Date of discharge: 02/24/25 Primary care physician: Ingrid Balbuena MD DS: Summary Time Attestation Discharge Coordination Time (in mins): 12 Quality: Safe Use of Opioids Does Pt have an Active Cancer Diagnosis on the Problem List?: No Quality: Stroke Does the patient have a stroke diagnosis?: No Physical Exam Vital Signs: Vital Signs: Last Vital Signs Temp 97.7 F 02/24/25 07:17 Pulse 99 02/24/25 07:17 Resp 16 02/24/25 07:17 BP 138/88 02/24/25 07:17 Pulse Ox 98 02/24/25 07:17 O2 Del Method Room Air 02/24/25 07:17 BMI result Body Mass Index 35.5 Discharge Plan Discharge Patient Disposition: Home, Self-Care Referrals: Ingrid Balbuena MD [Primary Care Provider, [facility]] - 1 Week Discharge Medications: New oxycodone 5 mg tablet 5 mg PO Q6H PRN (Reason: pain) Qty: 20 0RF Rx Instructions: Partial Fill upon patient request. Continued Airsupra 90-80 mcg/actuation HFA aerosol inhaler 2 inh INHALATION Q4H PRN (Reason: cough) azelastine 0.05 % Drops 1 drp OPHTHALMIC (EYE) BID PRN (Reason: Allergy Symptoms) tramadol 50 mg tablet 50 mg PO Q6H PRN (Reason: Pain) levothyroxine [Synthroid] 150 mcg tablet 150 mcg PO 6XW albuterol sulfate 90 mcg/actuation Hfa Aerosol Inhaler 2 puff INHALATION 6XD PRN (Reason: Shortness Of Breath Or Wheezing) fluticasone propionate 50 mcg/actuation spray,suspension 1 spray intranasal DAILY acetaminophen 500 mg Tablet 1,000 mg PO QID PRN (Reason: Pain) Held ibuprofen [Advil] 200 mg Tablet 600 mg PO Q8H PRN (Reason: Pain) Hold Instructions: Resume on 02/25/25. oxycodone 5 mg tablet 5 mg PO TID PRN (Reason: pain) Hold Instructions: Resume on 03/27/25. old Rx Discharge Orders: Discharge Order (Routine); Ordered 02/24/25 Ordered By: Braeden Roman Diet: Advance to usual diet Activity on Discharge: As tolerated Activity Restrictions/Additional Instructions: After your spinal surgery we ask you to observe the following restrictions/guidelines: Activity: It is normal to feel some discomfort as you increase your activity, but that will improve with time. We ask you avoid heavy lifting or acitivities that cause pain. As a general rule, 8lbs is a safe limit for lifting right after surgery. Walk as much as you feel comfortable but not to exhaustion. You will feel extra tired the first few days after surgery. Stay well hydrated. It is OK to walk up and down stairs You may return to driving when you are off narcotics (such as vicodin, oxycodone, dilaudid, etc), and you are back to normal functional capacity. If you have any concerns please check with office before driving. Return to work is specific to each patient and each surgery, so please speak with your doctor/PA at first follow up. Please bring paperwork such as FMLA at that time if you need it filled out. Medications: We recommend you take 1,000mg Tylenol every 8 hours for the first few weeks after surgery, if you do not have any liver issues and can tolerate this medication. Do not exceed 4,000mg daily. We will give you a short supply of narcotics after surgery (usually one weeks worth). If you need more please call the office but do not use more than prescribed. You will need to give our office 48 hours notice if you need narcotics refilled and we do not fill narcotics on weekends or evenings. If you are on a narcotic, it is a good idea to take a stool softener such as colace or senna to avoid constipation If you take blood thinner such as aspirin, Plavix, Coumadin, Effient, Eliquis etc for conditions such as Afib, DVT, Pulmonary embolus, coronary disease, stents etc please speak with your surgeon about specific details as to when you can resume these medications. You can resume NSAIDs on post op day 1 (eg: Motrin, Naproxen, etc). Follow up: Please call the office, , after surgery to arrange a 3 week follow up for wound check. Wound Care: You may remove your dressing on the first day after surgery. ?You may ?leave open to air. Please do not remove the steri strips underneath. they will fall off on their own in one week. IT IS NORMAL FOR THE WOUND TO OOZE OR BE BLOODY FOR A FEW DAYS AFTER SURGERY. ?IF THIS HAPPENS JUST PLACE NEW DRESSING OVER IT TO AVOID STAINING CLOTHES. You may shower on post op day # 1 We ask that you do not let the water soak the wound. If it does get wet, just towel dry lightly. Please do not scrub your incision or place any type of chemical/ointment on the wound. No tub baths, pools or jacuzzis for one month. If you have any leaking or redness from your wound, or fevers, please call the office. Print Language: Egyptian
--- NOTE | 2025-02-24 09:28 | P.OP_ITS ---
Operative Note Operative Note Date of Service: 02/24/25 Narrative: Preoperative diagnosis: Right S1 radiculopathy due to disc herniation Postoperative diagnosis: Same Procedure: Right L5-S1 microdiskectomy with microscope Surgeon: David Harris MD, PhD Press Brake Operator: OSCAR Snyder This 60-year-old female suffering from a right lumbar radiculopathy compressing the right S1 nerve root. The patient was offered a lumbar microdiskectomy to decompress the nerve root. The procedure complications were explained. The patient was consented. The patient was brought to the operating room and endotracheally intubated. The patient was turned in a prone position on the Negrito frame. Prepping and draping was done followed by time-out. A mid lumbar incision was made followed by release of the paravertebral muscles on the right side to expose the L5-S1 interspace. An intraoperative x-rays obtained to confirm the correct level. The microscope was brought in. A L5 laminotomy was done followed by opening of the flavum ligament. The S1 nerve root was identified and retracted medially to expose the L5-S1 disc space. I could palpate a disc herniation medial from the S1 nerve root, which I carefully removed with a pituitary. The disc space was inspected and any residual disc fragments were removed. This resulted in an excellent decompression of the S1 nerve root. Hemostasis was done. The microscope was removed. Marcaine was injected intramuscularly.The incision was closed in two layers. Steri-Strips used to approximate the incision. An op-site were taken there was used to cover the incision. All sponge and needle counts were correct. Patient was extubated and transported in stable condition to recovery room. this procedure was done with the aid of a physician medical practice assistant who performed the initial exposure until the microscope was brought in and performed the closure of the incision. Anesthesia: General Blood loss: 40 mL Complications: None Specimen: None Surgical time: Under 60 minutes Disposition: Discharge home
== END 2025-02-24 11:15 | disposition home or self-care (01) ==
PROVIDERS: PCP Family Medicine; Visit Provider Neurological Surgery
PROC: (CPT 63030; principal; 2025-02-24 08:30)
DX: M51.16 Intervertebral disc disorders with radiculopathy, lumbar region (principal); M54.9 Dorsalgia, unspecified; E03.9 Hypothyroidism, unspecified; J45.909 Unspecified asthma, uncomplicated; Z79.1 Long term (current) use of non-steroidal anti-inflammatories (NSAID); Z79.51 Long term (current) use of inhaled steroids; Z79.899 Other long term (current) drug therapy; Z98.890 Other specified postprocedural states
CPT/HCPCS: 63030; J0131; J0690; J1100; J1171; J1885; J2003; J2405; J2704; J3010

== ENCOUNTER → 2025-02-24 06:45 | Outpatient (BNV) | payer BC, SELFPAY | PROVIDERS: PCP Family Medicine; Visit Provider Neurological Surgery | DX: M51.17 Intervertebral disc disorders with radiculopathy, lumbosacral region (principal) | CPT/HCPCS: 63030; 99499 ==

== ENCOUNTER 2025-03-17 11:21 | Outpatient (AMB) | payer BC, SELFPAY ==
--- NOTE | 2025-03-17 11:24 | HO.SPINEOV ---
Intake Visit Reasons: 1st post op Intake Note: Ms. Alfaro is here today for her 1st post op. 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 Harris. She reports that directly after surgery for the 1st few days she had no pain, and then her pain slowly came back for the next couple of weeks. She does state that she had about 2-3 days last week where she had had no pain, but presently when sitting in the office today she states that she has a very similar right-sided shooting pain going all the way down her leg toward the right lateral calf. She is concerned that surgery may not have been successful/beneficial. We discussed the postoperative healing course, and I answered any questions that she had. I believe she is likely suffering from a course of postoperative inflammation, and I expect that her symptoms will continue to improve with the coming weeks. No new neurological deficits. The patient ambulates well and rises from a seated position without difficulty. Her posterior incision site is closed and well healing. I would like to follow up with Loretta again in 6 weeks for his 2nd postoperative visit. At the conclusion of this visit she requests a letter to remain out of work for the time being, which I provided to her. Braeden Harris MD,PhD [facility] Coding Level of Care Code Global (16855) Diagnoses Lumbar radiculopathy M54.16
== END 2025-03-17 13:00 | disposition home or self-care (01) ==
LOC: HO.HNS 11:22
PROVIDERS: PCP Family Medicine; Visit Provider Physician Assistant
DX: M54.16 Radiculopathy, lumbar region (principal)
CPT/HCPCS: 99024

== ENCOUNTER 2025-04-28 11:21 | Outpatient (AMB) | payer BC, SELFPAY ==
--- NOTE | 2025-04-28 11:24 | A.SPINEOV_ITS ---
Intake Visit Reasons: 2nd post op Intake Note: Ms. Alfaro is here today for her 2nd post op. Collateral Specialist Required: No Allergies No Known Allergies Allergy (Verified 03/17/25 11:29) Assessment & Plan Assessment & Plan (1) Lumbar radiculopathy: Code(s): M54.16 - Radiculopathy, lumbar region Category: Medical Plan Procedure: Right L5-S1 microdiskectomy When he is a pleasant 60-year-old female who comes in today for her 2nd postoperative visit after having a right-sided L5-S1 microdiskectomy completed by Dr. Harris. She preivously reported continuation of her right sided leg pain during her last visit. She reports that her right-sided leg pain has significantly improved, however she does still suffer from intermittent pain throughout the day, for which he takes Tylenol/ibuprofen. She asked several questions regarding the postoperative healing course, all of which I answered to the best of my ability. No new neurological deficits. The patient ambulates well and rises from a seated position without difficulty. Her posterior incision site is closed and well healed. I believe that when he continues to make satisfactory progress, despite her initial concerns regarding protracted pain; there is no need for continued routine follow up with her Braeden Abel Harris MD,PhD [facility] Coding Level of Care Code Global (63199) Diagnoses Lumbar radiculopathy M54.16
== END 2025-04-28 11:39 | disposition home or self-care (01) ==
LOC: HO.HNS 11:22
PROVIDERS: PCP Family Medicine; Visit Provider Physician Assistant
DX: M54.16 Radiculopathy, lumbar region (principal)
CPT/HCPCS: 99024